=== PATIENT | female | born 1975 | race Caucasian/White ===

== ENCOUNTER 2017-08-10 05:30 | Day surgery (SDC) | payer SELFPAY ==
[~2017-08-10] VITALS: Ht 154.9 cm; Wt 81.7 kg
[~2017-08-10 05:30] MED LIST: GLUCOPHAGE500 MG/TAB PO; IBU600 MG PO; ROXICODONE 55 MG/TAB PO; TYLENOL W/COD1 UDTAB PO
[2017-08-10 06:05] VITALS: BP 140/76; PULSE 88; TEMP 97.8
[2017-08-10 07:46] VITALS: BP 94/78; PULSE 92; TEMP 97.3
[2017-08-10 08:00] VITALS: BP 107/74; PULSE 56
[2017-08-10] MEDS ORDERED: NORCO 325 MG-51 TAB PO (08:10)
[2017-08-10 08:15] VITALS: BP 126/72; PULSE 73
== END 2017-08-10 09:00 | disposition home or self-care (01) ==
LOC: SDCO 05:30
DX: M65.331 Trigger finger, right middle finger (principal); E11.9 Type 2 diabetes mellitus without complications; Z79.84 Long term (current) use of oral hypoglycemic drugs; I10 Essential (primary) hypertension; F17.210 Nicotine dependence, cigarettes, uncomplicated
CPT/HCPCS: J0690; J2704